=== PATIENT | female | born 1940 | race Caucasian/White ===

== ENCOUNTER 2022-01-01 18:22 | Emergency (ER) | payer OTHER ==
[~2022-01-01] VITALS: Ht 157.5 cm; Wt 54.4 kg
[2022-01-01 19:25] LABS: Basophils # (auto) 0 10 ^3/uL (0-0.2); Basophils % (auto) 0.6 % (0.0-2.0); Eosinophils # (auto) 0.2 10 ^3/uL (0-0.8); Eosinophils % (auto) 3.2 % (0.0-7.0); Hematocrit 33.6 % (36.0-46.0); Hemoglobin 11.4 g/dL (12.2-16.2); Lymphocytes # (auto) 1.2 10 ^3/uL (0.4-5.4); Lymphocytes % (auto) 19.5 % (10.0-50.0); Mean Corpuscular Hemoglobin 30.4 pg (28.0-32.0); Mean Corpuscular Volume 89.5 fL (80.0-100.0); Monocytes # (auto) 0.5 10 ^3/uL (0-1.3); Monocytes % (auto) 8.3 % (0.0-12.0); Neutrophils # (auto) 4.3 10 ^3/uL (1.6-8.6); Neutrophils % (auto) 68.4 % (37.0-80.0); Red Blood Cells 3.76 10^6/uL (4.0-5.20); Red Cell Distribution Width 13.5 % (11.8-14.3); White Blood Cell 6.2 10^3/uL (4.4-10.8)
[2022-01-01 19:35] LABS: Albumin 3.8 g/dL (3.4-5.0); Calcium 9.1 mg/dL (8.5-10.1); Potassium 3.9 mmol/L (3.5-5.1)
[2022-01-01 19:38] LABS: Bilirubin, Total 0.4 mg/dL (0.2-1.0); Total Protein 7.7 g/dL (6.4-8.2)
[2022-01-01] MEDS ORDERED: FUROSEMIDE 40 MG/4 ML VIAL IV ONE (20:30)
[2022-01-01 21:40] VITALS: BP 142/44
[2022-01-01] MEDS ORDERED: FUROSEMIDE 40 MG/4 ML VIAL ONE (21:40)
== END 2022-01-01 21:56 | disposition home or self-care (01) ==
LOC: ER 18:22
DX: R60.0 Localized edema (principal); I10 Essential (primary) hypertension; G89.29 Other chronic pain; M54.50 Low back pain, unspecified; Z90.710 Acquired absence of both cervix and uterus
CPT/HCPCS: 36415; 71046; 80053; 83880; 85025; 86141; 93005; 93970; 96374; 99285; J1940

== ENCOUNTER 2023-05-31 21:31 | Inpatient (IN) | payer OTHER ==
[~2023-05-31] VITALS: Ht 157.5 cm; Wt 56.2 kg
[2023-05-31 23:26] VITALS: BP 144/54; PULSE 64; RESP 19; TEMP 98.3; O2SAT 96
[2023-05-31] MEDS ORDERED: ONDANSETRON HCL 4 MG/2 ML VIAL IV PRN (23:45)
[2023-05-31] MEDS ORDERED: ACETAMINOPHEN 325 MG TAB PO PRN (23:45)
[2023-05-31] MEDS ORDERED: MORPHINE SULFATE INJ 2 MG/ml SYRG IV PRN (23:45)
[2023-05-31] MEDS ORDERED: NITROGLYCERIN 0.4 MG SL TAB SL PRN (23:45)
[2023-05-31] MEDS ORDERED: DOCUSATE SOD 100 MG CAP PO PRN (23:45)
[2023-06-01] VITALS (8 sets, daily range): BP systolic 107–141; BP diastolic 48–83; PULSE 51–76; RESP 14–20; TEMP 98.3–98.8; O2SAT 91–95
[2023-06-01] MEDS: traMADol HCL 50 MG TAB PO PRN ×2 (00:38→16:51)
[2023-06-01 05:20] LABS: Basophils # (auto) 0 10 ^3/uL (0-0.2); Basophils % (auto) 0.2 % (0.0-2.0); Chloride 109 mmol/L (98-107); Eosinophils # (auto) 0.1 10 ^3/uL (0-0.8); Eosinophils % (auto) 0.8 % (0.0-7.0); Hemoglobin 10.9 g/dL (12.2-16.2); Lymphocytes # (auto) 0.9 10 ^3/uL (0.4-5.4); Lymphocytes % (auto) 11.9 % (10.0-50.0); Mean Corpuscular Hemoglobin 30.8 pg (28.0-32.0); Mean Corpuscular Volume 90.5 fL (80.0-100.0); Monocytes % (auto) 13.1 % (0.0-12.0); Neutrophils # (auto) 5.6 10 ^3/uL (1.6-8.6); Potassium 3.5 mmol/L (3.5-5.1); Red Blood Cells 3.54 10^6/uL (4.0-5.20); Red Cell Distribution Width 13.3 % (11.8-14.3); Sodium 140 mmol/L (136-145); White Blood Cell 7.6 10^3/uL (4.4-10.8)
[2023-06-01 05:21] LABS: Anion Gap 5 (5-15); Carbon Dioxide 26 mmol/L (20-30)
[2023-06-01 05:22] LABS: Calcium 8.6 mg/dL (8.7-10.4)
[2023-06-01 05:26] LABS: Glucose 82 mg/dL (74-106)
[2023-06-01 05:27] LABS: BUN/Creatinine Ratio 35.2 (10.0-20.0); Blood Urea Nitrogen 19 mg/dL (9-23)
[2023-06-01] MEDS ORDERED: INFLUENZA QUAD 2023-2024 0.5 ML SYRG IM ONE (09:00)
[2023-06-01] MEDS ORDERED: ROPI2TAB6 PO (09:26)
[2023-06-01] MEDS ORDERED: OXYC325T14 PO (09:26)
[2023-06-01] MEDS ORDERED: TIZA4TAB9 PO (09:28)
[2023-06-01] MEDS: ENOXAPARIN SOD 40 MG/0.4 ML SYRINGE SC SCH (09:40)
[2023-06-01 10:52] LABS: Urine Bacteria MANY /hpf (None Seen); Urine Blood 1+ /uL (Negative); Urine Clarity HAZY (Clear); Urine Color Yellow (Yellow); Urine Hyaline Cast FEW /lpf (0 - 2); Urine Mucus FEW (None Seen); Urine Protein, UAD TRACE (Negative); Urine Specific Gravity 1.024 (1.001-1.035); Urine WBC 14 /hpf (0 - 5); Urine pH 6.5 (5.0-8.0)
[2023-06-01] MEDS: cefTRIAXone 1GM/50ML D5W 50 ML IV SCH (16:51)
[2023-06-02 05:00] VITALS: BP 136/60; PULSE 51; RESP 16; TEMP 97.8; O2SAT 94
[2023-06-02] MEDS ORDERED: LEVOTHYROXINE SODIUM 25 MCG TAB PO SCH (07:00)
[2023-06-02 07:11] LABS: Basophils # (auto) 0 10 ^3/uL (0-0.2); Basophils % (auto) 0.3 % (0.0-2.0); Eosinophils # (auto) 0.1 10 ^3/uL (0-0.8); Eosinophils % (auto) 1.8 % (0.0-7.0); Hematocrit 33.5 % (36.0-46.0); Hemoglobin 11.2 g/dL (12.2-16.2); Lymphocytes # (auto) 1.2 10 ^3/uL (0.4-5.4); Lymphocytes % (auto) 16.5 % (10.0-50.0); Mean Corpuscular Hemoglobin 30.1 pg (28.0-32.0); Mean Corpuscular Hgb Conc. 33.5 g/dL (32.0-36.0); Mean Corpuscular Volume 89.6 fL (80.0-100.0); Monocytes # (auto) 0.9 10 ^3/uL (0-1.3); Neutrophils % (auto) 69.4 % (37.0-80.0); Nucleated Red Blood Cells % 0.1 %; Red Blood Cells 3.74 10^6/uL (4.0-5.20); Red Cell Distribution Width 13.3 % (11.8-14.3); White Blood Cell 7.3 10^3/uL (4.4-10.8)
[2023-06-02 07:26] LABS: Anion Gap 5 (5-15); Carbon Dioxide 27 mmol/L (20-30); Chloride 106 mmol/L (98-107); Potassium 3.9 mmol/L (3.5-5.1); Sodium 138 mmol/L (136-145)
[2023-06-02 07:28] LABS: Calcium 8.3 mg/dL (8.7-10.4)
[2023-06-02 07:33] LABS: Glucose 87 mg/dL (74-106)
[2023-06-02] MEDS ORDERED: ADENOSINE 47 MG in GIVE UN-DILUTED 0 ML IV ONE (07:45)
[2023-06-02 08:00] VITALS: PULSE 48
[2023-06-02 08:01] LABS: BUN/Creatinine Ratio 28.4 (10.0-20.0); Blood Urea Nitrogen 19 mg/dL (9-23)
[2023-06-02 09:00] VITALS: BP 114/54; PULSE 54; RESP 16; TEMP 97.7; O2SAT 95
[2023-06-02] MEDS: ENOXAPARIN SOD 40 MG/0.4 ML SYRINGE SC SCH (10:26)
[2023-06-02] MEDS: cefTRIAXone 1GM/50ML D5W 50 ML IV SCH (10:26)
[2023-06-02 13:00] VITALS: BP 131/58; PULSE 69; RESP 20; TEMP 98.1; O2SAT 96
[2023-06-02 16:28] VITALS: BP_SYST 127; PULSE 91; RESP 19; TEMP 97.8; O2SAT 95
[2023-06-02] MEDS ORDERED: SENN-105 PO (16:35)
[2023-06-02] MEDS ORDERED: INFLUENZA QUAD 2023-2024 0.5 ML SYRG IM ONE (18:00)
[2023-06-02 18:09] VITALS: BP 127/73; PULSE 91; RESP 19; TEMP 97.8; O2SAT 95
== END 2023-06-02 20:00 | disposition home or self-care (01) | DRG 312 ==
LOC: TELE-WESTW 23:08 → UNDOADMIN 23:08 → TELE-WESTW 23:44
PROVIDERS: ADMIT Nurse Practitioner Family; ATTEND Nurse Practitioner Family
DX: R55 Syncope and collapse (principal); R29.6 Repeated falls; I10 Essential (primary) hypertension
CPT/HCPCS: 36415; 78452; 80048; 81001; 84439; 84443; 85025; 87086; 90686; 93017; 93306; 97110; 97116; 97163; 97530; G0378; J0153; J0696